=== PATIENT | female | born 1930 | race Asian ===

== ENCOUNTER 2017-08-31 21:32 | Emergency (ER) | payer MEDICARE, OTHER ==
[~2017-08-31] VITALS: Ht 160 cm; Wt 64.2 kg
[2017-08-31 22:17] VITALS: Ht 160 cm; Wt 64.2 kg
[2017-09-01 00:34] LABS: CALCIUM 8.9 mg/dL (8.5-10.1); CARBON DIOXIDE 32.9 mmol/L (21-32); CHLORIDE SERUM 99 mmol/L (98-107); CREATININE SERUM 0.8 mg/dL (0.6-1.0); GLUCOSE SERUM 107 mg/dL (74-106); POTASSIUM SERUM 3.9 mmol/L (3.5-5.1); SODIUM SERUM 136 mmol/L (136-145)
[2017-09-01 00:39] LABS: ALBUMIN 3.5 g/dL (3.4-5.0); ALKALINE PHOSPHATASE 47 U/L (46-116); ALT/SGPT 20 U/L (14-59); AMYLASE 73 U/L (25-115); AST/SGOT 14 U/L (15-37); BILIRUBIN TOTAL 0.9 mg/dL (0.20-1.00); LIPASE 366 IU/L (73-393); TOTAL PROTEIN, SERUM 7.3 g/dL (6.4-8.2)
[2017-09-01 00:46] LABS: BASOPHIL % 0.5 % (0-2); PLATELET COUNT 151 x10^3mcL (130-400); RED CELL DISTRIBUTION WIDTH 13.2 % (11.5-14.5)
[2017-09-01 03:36] VITALS: BP 179/78
== END 2017-09-01 03:36 | disposition home or self-care (01) ==
LOC: ED 21:32
PROVIDERS: Emergency Medicine Emergency Medical Services
DX: K80.20 Calculus of gallbladder without cholecystitis without obstruction (principal); R11.10 Vomiting, unspecified; J45.909 Unspecified asthma, uncomplicated; J44.9 Chronic obstructive pulmonary disease, unspecified; I10 Essential (primary) hypertension; E11.9 Type 2 diabetes mellitus without complications; E78.00 Pure hypercholesterolemia, unspecified; Z90.12 Acquired absence of left breast and nipple
CPT/HCPCS: 36415; J7030; Q0092

== ENCOUNTER 2017-09-03 10:00 | Emergency (ER) | payer OTHER ==
[~2017-09-03] VITALS: Ht 160 cm; Wt 64.4 kg
[2017-09-03 10:03] VITALS: Ht 160 cm; Wt 64.4 kg
[2017-09-03 11:01] LABS: microscopic required? NO
[2017-09-03 11:07] LABS: urine erythrocyte NEGATIVE (NEGATIVE)
[2017-09-03 12:15] VITALS: BP 193/81
== END 2017-09-03 12:15 | disposition home or self-care (01) ==
LOC: ED 10:00
PROVIDERS: Emergency Medicine
DX: K80.20 Calculus of gallbladder without cholecystitis without obstruction (principal); R11.2 Nausea with vomiting, unspecified; J45.909 Unspecified asthma, uncomplicated; J44.9 Chronic obstructive pulmonary disease, unspecified; I10 Essential (primary) hypertension; E11.9 Type 2 diabetes mellitus without complications; E78.00 Pure hypercholesterolemia, unspecified; Z90.12 Acquired absence of left breast and nipple
CPT/HCPCS: J1885